=== PATIENT | male | born 1960 | race Caucasian/White ===

== ENCOUNTER 2017-10-16 08:41 | Emergency (ER) | payer SELFPAY ==
[2017-10-16 09:26] LABS: Absolute Lymphocytes (CBC) 1.3 K/uL (0.7-4.9); Absolute Monocytes 0.5 K/uL (0.1-1.3); Absolute Neutrophil 7.1 K/uL (1.8-8.0); Basophils % 0.7 % (0-1.3); Eosinophils % 0.7 % (0-4.4); Hematocrit 46.5 % (39.6-49.0); MCH 31.2 pg (27.0-35.0); MCV 94.7 fL (80-100); MPV 7.8 fL (7.6-11.3); Monocytes % 5.7 % (3.3-12.3)
--- NOTE | 2017-10-16 09:35 | RAD REPORT ---
EXAM DESCRIPTION: RAD - Chest Single View - 10/16/2017 9:22 am CLINICAL HISTORY: Chest pain. COMPARISON: None. FINDINGS: Portable technique limits examination quality. The lungs are grossly clear. The heart is normal in size. No displaced fractures. IMPRESSION: No acute intrathoracic process suspected.
[2017-10-16 09:41] LABS: Protime INR 1.1
[2017-10-16 09:48] LABS: Bicarbonate 25 mEq/L (21-31); Glucose Level 116 mg/dL (65-120); Lipase 39 U/L (22-51); Potassium 3.8 mEq/L (3.6-5.0); Sodium Level 139 mEq/L (135-145)
[2017-10-16 09:54] LABS: ALT/SGPT 51 IU/L (10-60); AST/SGOT 49 IU/L (10-42); Alkaline Phosphatase 75 IU/L (42-121); Amylase Level 85 U/L (28-100); BUN Blood Urea Nitrogen 14 mg/dL (6-20); Bilirubin Direct 0.1 mg/dL (0-0.2); Bilirubin Total 0.7 mg/dL (0.3-1.2); Creatine Phosphokinase 341 IU/L (22-269); Magnesium 1.9 mg/dL (1.8-2.5); Protein, Total 7.5 g/dL (6.0-8.3)
[2017-10-16] MEDS ORDERED: ONDANSETRON 4 MG/2 ML VIAL ONE (10:02)
--- NOTE | 2017-10-16 10:35 | RAD REPORT ---
EXAM DESCRIPTION: CT - Abdomen Pelvis W Contrast - 10/16/2017 10:14 am CLINICAL HISTORY: Abdominal pain/right lower quadrant pain. Nausea COMPARISON: none. TECHNIQUE: Computed axial tomography of the abdomen pelvis was obtained. 100 cc Isovue-300 was admin istered intravenously. Oral contrast was not requested which limits evaluation of bowel. All CT scans are performed using dose optimization technique as appropriate and may include automated exposure control or mA/KV adjustment according to patient size. FINDINGS: The liver has a diminished attenuation consistent with fatty infiltration. The Spleen, pancreas, and adrenals appear unremarkable. Very small renal cysts are present. There is no evidence of diverticulitis. The appendix is normal. A small right inguinal hernia contains fat IMPRESSION: No acute abnormality is displayed.
[2017-10-16 10:41] LABS: CKMB Creatine Kinase MB 10.2 ng/ml (0.3-4.0)
[2017-10-16] MEDS ORDERED: KETOROLAC 30 MG/ML INJ ONE (10:45)
--- NOTE | 2017-10-16 10:52 | ER ---
Nurse's Notes [facility] Name: Jerry Lozada Age: 56 yrs Sex: Male : 1960 Arrival Date: 10/16/2017 Time: 08:41 Bed 8 Private MD: Diagnosis: Generalized abdominal pain Presentation: 10/16 08:57 Presenting complaint: Patient states: RLQ pain that radiates down R leg x 1 month, L ss arm tingling, pain and numbness x 1 week chest pressure and nausea that started this morning. Transition of care: patient was not received from another setting of care. Onset of symptoms is unknown. Initial Sepsis Screen: Does the patient meet any 2 criteria? No. Patient's initial sepsis screen is negative. Does the patient have a suspected source of infection? No. Patient's initial sepsis screen is negative. Care prior to arrival: None. 08:57 Method Of Arrival: Ambulatory ss 08:57 Acuity: KERA 3 ss Historical: - Allergies: 10:27 No Known Allergies; sg - Home Meds: 10:27 None [Active]; sg - PMHx: 10:27 DVT; Myocardial infarction; Hepatomegaly; sg - Immunization history:: Adult Immunizations up to date. - Social history:: Smoking status: Patient uses tobacco products, smokes one pack cigarettes per day. Screenin:00 Abuse screen: Denies threats or abuse. Denies injuries from another. Nutritional sg screening: No deficits noted. Tuberculosis screening: No symptoms or risk factors identified. Never had TB. Fall Risk None identified. Assessment: 09:16 General: Appears in no apparent distress. comfortable, well groomed, well developed, sg well nourished, Behavior is calm, cooperative, appropriate for age. Pain: Complains of pain in abdomen Quality of pain is described as aching, crampy, sharp, stabbing. Neuro: Level of Consciousness is awake, alert, obeys commands, Oriented to person, place, time, Lead Neurodiagnostic Technologist are equal bilaterally Moves all extremities. Full function Gait is steady, Speech is normal, Facial symmetry appears normal. Cardiovascular: Heart tones S1 S2 present Capillary refill is brisk in bilateral fingers Patient's skin is warm and dry. Chest pain is denied. Respiratory: Airway is patent Respiratory effort is even, unlabored, Respiratory pattern is regular, symmetrical, Breath sounds are clear. GI: Abdomen is round non-distended, Bowel sounds present X 4 quads. Abd is soft X 4 quads Abdomen is tender to palpation X 4 quads. : No signs and/or symptoms were reported regarding the genitourinary system. EENT: No signs and/or symptoms were reported regarding the EENT system. Derm: Skin is pink, warm \\T\\ dry. Musculoskeletal: No signs and/or symptoms reported regarding the musculoskeletal system. 10:23 Reassessment: Patient appears in no apparent distress at this time. Patient and/or sg family updated on plan of care and expected duration. Pain level reassessed. Patient is alert, oriented x 3, equal unlabored respirations, skin warm/dry/pink. pt returned from CT scan, requesting pain medication at this time, pt offered nonpharm measures for pain control, pt states not helping. Sam PATIENT LIAISON notified Patient states symptoms have not improved. 11:51 Reassessment: while going over discharge instructions with patient. Pt calmly states, ss "I don't want that. that isn't going to work for me. I'll just buy half an oz of cocaine and that'll help me." Pt refused following up with PCP. Vital Signs: 08:57 BP 146 / 85; Pulse 63; Resp 18; Temp 97.4(O); Pulse Ox 99% on R/A; Weight 122.47 kg; ss Height 5 ft. 4 in. (162.56 cm); Pain 7/10; 08:57 Body Mass Index 46.34 (122.47 kg, 162.56 cm) ED Course: 08:41 Patient arrived in ED. as 08:45 Lise Wright FNP-C is PHCP. kb 08:45 Neftali Rios MD is Attending Physician. kb 08:48 Mohan Ortega, ZARIA is Primary Nurse. sg 08:57 Arm band placed on right wrist. ss 08:58 Triage completed. ss 09:14 Patient has correct armband on for positive identification. Placed in gown. Bed in low sv position. green chain operator on. Pulse ox on. NIBP on. Door closed. Head of bed elevated. 09:15 Initial lab(s) drawn, by me, sent to lab. Inserted saline lock: 20 gauge in right sg antecubital area, using aseptic technique. Blood collected. 09:22 XRAY Chest (1 view) In Process Unspecified. EDMS 10:15 CT Abd/Pelvis - W/Contrast In Process Unspecified. EDMS 10:17 CT completed. Patient tolerated procedure well. Patient moved back from CT. sj 11:51 No provider procedures requiring assistance completed. IV discontinued, intact, ss bleeding controlled, No redness/swelling at site. Pressure dressing applied. Administered Medications: 10:05 Drug: Zofran 4 mg Route: IVP; Site: right antecubital; sg 10:45 Drug: TORadol 30 mg Route: IVP; Site: right antecubital; sg Outcome: 10:51 Discharge ordered by MD. kb 11:51 Discharged to home ambulatory. ss 11:51 Condition: good 11:51 Discharge instructions given to patient, Instructed on discharge instructions, follow up and referral plans. medication usage, Demonstrated understanding of see nurses notes 11:57 Patient left the ED. ss Signatures: Dispatcher [employer] EDMS Lise Wright, VANNA-C TABLET MAKING MACHINE OPERATOR-Clau Sanchez, RN RN Mohan Dunlap, Emilee Bender RN, Amelia as Smirch, Shelby, ZARIA ENCISO
--- NOTE | 2017-10-16 10:52 | EDPHYS ---
Physician Documentation [facility] Name: Jerry Lozada Age: 56 yrs Sex: Male : 1960 Arrival Date: 10/16/2017 Time: 08:41 Bed 8 Private MD: ED Physician Neftali Rios HPI: 10/16 10:38 This 56 yrs old Male presents to ER via Ambulatory with complaints of kb Abdominal Pain, Vomiting. 10:38 The patient presents with abdominal pain in the epigastric area, in the right upper kb quadrant, right lower quadrant. Onset: The symptoms/episode began/occurred 1 month(s) ago, and became worse today. The symptoms radiate to right leg. Associated signs and symptoms: none. The symptoms are described as constant. Modifying factors: The symptoms are alleviated by nothing, the symptoms are aggravated by pressure. Severity of pain: At its worst the pain was moderate in the emergency department the pain is unchanged. The patient has not experienced similar symptoms in the past. Pt reports right-sided abd pain with radiation down right leg that started a month ago. Reports pain is worse today and also has pain to epigastric area. States he was told 2.5 years ago that he had liver disease, but did not get it rechecked. . Historical: - Allergies: 10:27 No Known Allergies; sg - Home Meds: 10:27 None [Active]; sg - PMHx: 10:27 DVT; Myocardial infarction; Hepatomegaly; sg - Immunization history:: Adult Immunizations up to date. - Social history:: Smoking status: Patient uses tobacco products, smokes one pack cigarettes per day. ROS: 10:40 Constitutional: Negative for fever, chills, and weight loss, Cardiovascular: Negative kb for chest pain, palpitations, and edema, Respiratory: Negative for shortness of breath, cough, wheezing, and pleuritic chest pain, Back: Negative for injury and pain, : Negative for injury, bleeding, discharge, and swelling, MS/Extremity: Negative for injury and deformity, Skin: Negative for injury, rash, and discoloration, Neuro: Negative for headache, weakness, numbness, tingling, and seizure. 10:40 Abdomen/GI: Positive for abdominal pain, Negative for nausea, vomiting, and diarrhea, constipation, abdominal cramps, abdominal distension, anorexia. Exam: 10:40 Constitutional: This is a well developed, well nourished patient who is awake, alert, kb and in no acute distress. Head/Face: Normocephalic, atraumatic. Chest/axilla: Normal chest wall appearance and motion. Nontender with no deformity. No lesions are appreciated. Cardiovascular: Regular rate and rhythm with a normal S1 and S2. No gallops, murmurs, or rubs. Normal PMI, no JVD. No pulse deficits. Respiratory: Lungs have equal breath sounds bilaterally, clear to auscultation and percussion. No rales, rhonchi or wheezes noted. No increased work of breathing, no retractions or nasal flaring. Back: No spinal tenderness. No costovertebral tenderness. Full range of motion. Skin: Warm, dry with normal turgor. Normal color with no rashes, no lesions, and no evidence of cellulitis. MS/ Extremity: Pulses equal, no cyanosis. Neurovascular intact. Full, normal range of motion. Neuro: Awake and alert, GCS 15, oriented to person, place, time, and situation. Cranial nerves II-XII grossly intact. Motor strength 5/5 in all extremities. Sensory grossly intact. Cerebellar exam normal. Normal gait. 10:40 Abdomen/GI: Inspection: abdomen appears normal, Bowel sounds: normal, Palpation: soft, in all quadrants, mild abdominal tenderness, in the left upper quadrant and left lower quadrant, moderate abdominal tenderness, in the right upper quadrant and right lower quadrant. Vital Signs: 08:57 BP 146 / 85; Pulse 63; Resp 18; Temp 97.4(O); Pulse Ox 99% on R/A; Weight 122.47 kg; ss Height 5 ft. 4 in. (162.56 cm); Pain 7/10; 08:57 Body Mass Index 46.34 (122.47 kg, 162.56 cm) ss MDM: 08:50 Patient medically screened. 10:40 Data reviewed: vital signs, nurses notes. Data interpreted: Pulse oximetry: on room air kb is 99 %. Interpretation: normal. 10:51 Data reviewed: I have discussed the patient's presentation/case with the attending Emergency Department Physician;. Counseling: I had a detailed discussion with the patient and/or guardian regarding: the historical points, exam findings, and any diagnostic results supporting the discharge/admit diagnosis, lab results, radiology results, the need for outpatient follow up, a family practitioner, a lithograph designer, to return to the emergency department if symptoms worsen or persist or if there are any questions or concerns that arise at home. 10/16 08:57 Order name: Basic Metabolic Panel; Complete Time: 10:42 kb 10/16 08:57 Order name: BNP; Complete Time: 10:07 kb 10/16 08:57 Order name: CBC with Diff; Complete Time: 09:35 kb 10/16 08:57 Order name: Ckmb; Complete Time: 10:42 kb 10/16 08:57 Order name: CPK; Complete Time: 10:42 kb 10/16 08:57 Order name: LFT's; Complete Time: 10:42 kb 10/16 08:57 Order name: Magnesium; Complete Time: 10:42 kb 10/16 08:57 Order name: PT-INR; Complete Time: 09:44 kb 10/16 08:57 Order name: Ptt, Activated; Complete Time: 09:44 kb 10/16 08:57 Order name: Troponin (emerg Dept Use Only); Complete Time: 09:50 kb 10/16 08:57 Order name: XRAY Chest (1 view); Complete Time: 09:36 kb 10/16 08:57 Order name: Amylase, Serum; Complete Time: 10:42 kb 10/16 08:57 Order name: Lipase; Complete Time: 10:42 kb 10/16 09:37 Order name: CT Abd/Pelvis - W/Contrast; Complete Time: 10:37 kb 10/16 08:57 Order name: EKG; Complete Time: 08:58 kb 10/16 08:57 Order name: Cardiac monitoring; Complete Time: 09:14 kb 10/16 08:57 Order name: EKG - Nurse/Tech; Complete Time: 09:14 kb 10/16 08:57 Order name: IV Saline Lock; Complete Time: 09:14 kb 10/16 08:57 Order name: Labs collected and sent; Complete Time: 09:14 kb 10/16 08:57 Order name: O2 Per Protocol; Complete Time: 09:14 kb 10/16 08:57 Order name: O2 Sat Monitoring; Complete Time: 09:14 kb Administered Medications: 10:05 Drug: Zofran 4 mg Route: IVP; Site: right antecubital; sg 10:45 Drug: TORadol 30 mg Route: IVP; Site: right antecubital; sg Disposition: 16:39 Co-signature as Attending Physician, Neftali Rios MD. Disposition: 10/16/17 10:51 Discharged to Home. Impression: Generalized abdominal pain. - Condition is Stable. - Discharge Instructions: Abdominal Pain, Adult. - Prescriptions for Bentyl 20 mg Oral Tablet - take 1 tablet by ORAL route every 6 hours As needed; 20 tablet. Zofran 4 mg Oral Tablet - take 1 tablet by ORAL route every 6 hours As needed; 20 tablet. - Medication Reconciliation Form, Thank You Letter, Antibiotic Education, Prescription Opioid Use, Work release form form. - Follow up: Emergency Department; When: As needed; Reason: Worsening of condition. Follow up: Private Physician; When: 2 - 3 days; Reason: Recheck today's complaints, Continuance of care, Re-evaluation by your physician. Signatures: Dispatcher [employer] Lise Evans, VANNA-Shahriar PRABHAKAR-Mohan Kwan RN RN Alyssa Mendoza RN RN ss Starr, Gregory, MD MD
--- NOTE | 2017-10-16 15:40 | EKG ---
Test Date: 2017-10-16 Test Time: 09:02:34 Identity Management Developer: DWIGHT MEASUREMENT RESULTS: Intervals: Rate: 61 MT: 152 QRSD: 78 QT: 404 QTc: 406 [place]: P: 57 MT: 152 QRS: 8 T: 43 INTERPRETIVE STATEMENTS: Normal sinus rhythm Normal ECG No previous ECG available for comparison Electronically Signed On 10-16-17 15:37:46 CDT by Moisés Shafer
== END 2017-10-16 11:57 | disposition home or self-care (01) ==
LOC: ER 08:41
DX: R10.84 Generalized abdominal pain (principal); I25.2 Old myocardial infarction; F17.210 Nicotine dependence, cigarettes, uncomplicated
CPT/HCPCS: 36415; 71045; 74177; 80048; 80076; 82150; 82550; 82553; 83690; 83735; 83880; 84484; 85025; 85610; 85730; 93005; 96374; 96375; 99285; J2405; Q9967

== ENCOUNTER 2023-05-11 17:07 | Emergency (ER) | payer SELFPAY ==
[2023-05-11 19:39] LABS: Specific Gravity 1.025 (1.005-1.030); Urine Bacteria >50 /HPF (<20); Urine Bilirubin NEGATIVE (Negative); Urine Blood 2+ (Negative); Urine Clarity Extremely Turbid (Clear); Urine Color Yellow (Yellow); Urine Glucose NEGATIVE (Negative); Urine Mucus Slight /HPF (None Seen); Urine Protein TRACE (Negative); Urine Urobilinogen Normal (Normal); Urine pH 6.5 (5.0-7.0)
[2023-05-11] MEDS ORDERED: NA CHLORIDE 0.9% 1,000 ML ONE (20:21)
[2023-05-11 21:16] LABS: Hematocrit 39.3 % (39.6-49.0); Lymphocytes % 10.6 % (15.3-44.8); MCV 93.9 fL (80-100); MPV 8.1 fL (7.6-11.3); Platelets 221 thou/uL (152-406); RBC Red Blood Cell Count 4.19 M/uL (4.33-5.43)
[2023-05-11 21:27] LABS: Albumin 3.2 g/dL (3.4-5.0); Bilirubin Total 0.4 mg/dL (0.2-1.0); Potassium 3.7 mEq/L (3.5-5.1); Protein, Total 7.2 g/dL (6.4-8.2)
--- NOTE | 2023-05-11 22:08 | RAD REPORT ---
EXAM DESCRIPTION: CTAbdomen Pelvis W Contrast - 05/11/2023 9:55 pm CLINICAL HISTORY: Abdominal pain. FLANK PAIN COMPARISON: <Comparisons> TECHNIQUE: Biphasic CT imaging of the abdomen and pelvis was performed with 100 ml non-ionic IV cont rast. All CT scans are performed using dose optimization technique as appropriate and may include automated exposure control or mA/KV adjustment according to patient size. FINDINGS: The lung bases are clear. The liver, spleen, pancreas, adrenal glands and kidneys are within normal limits. No bowel obstruction, free air, free fluid or abscess. Moderate stool is present throughout the colon . The appendix is normal. No evidence of significant lymphadenopathy. Moderate fat containing right inguinal hernia. Bilateral spondylolysis with mild anterolisthesis L5-S1. Hardware is in place proximal left femur. IMPRESSION: No acute intra-abdominal or pelvic finding. Moderate lumbosacral spondylosis.
[2023-05-11] MEDS ORDERED: Levofloxacin500mg IV 500 MG/100 ML BAG IV ONE (23:19)
--- NOTE | 2023-05-11 23:52 | EDPHYS ---
Physician Documentation [facility] Name: Jerry Lozada Age: 62 yrs Sex: Male : 1960 Arrival Date: 05/11/2023 Time: 17:07 Bed 9 Private MD: ED Physician Pedro Bass HPI: 05/12 00:10 This 62 yrs old Male presents to ER via Ambulatory with complaints of flank pain, UTI sb4 symptoms. 02:30 The patient complains of pain in the right low back. The pain does not radiate. patient sb4 states that he has been battling a UTI. he was diagnosed with one a week or so ago and treated with only IV antibiotics because he states that he could not afford to fill the PO antibiotics. he states he has been experiencing continuing UTI symptoms and now his right lower back hurts. denies any fevers, chills, nausea, vomiting, diarrhea. Historical: - Allergies: 05/11 17:50 PENICILLINS; ap3 17:50 Codeine; ap3 - PMHx: 17:50 DVT; hepatomegaly; Myocardial infarction; ap3 - Immunization history:: Client reports having NOT received the Covid vaccine. - Social history:: Smoking status: Patient reports the use of cigarette tobacco products, smokes one pack cigarettes per day. ROS: 05/12 02:30 Constitutional: Negative for fever, chills, and weight loss, sb4 Back: Positive for flank pain, on the right, : Positive for urinary symptoms, burning with urination, All other systems are negative, Exam: 02:30 Constitutional: This is a well developed, well nourished patient who is awake, alert, sb4 and in no acute distress. Head/Face: Normocephalic, atraumatic. Eyes: Extra-ocular motions intact. Periorbital areas with no swelling, redness, or edema. ENT: Mucous membranes moist. Cardiovascular: Regular rate and rhythm with a normal S1 and S2. Respiratory: Lungs have equal breath sounds bilaterally, clear to auscultation and percussion. No rales, rhonchi or wheezes noted. No increased work of breathing, no retractions or nasal flaring. Abdomen/GI: Soft, non-tender, no distension. Skin: Warm, dry with normal turgor. Normal color with no rashes, no lesions, and no evidence of cellulitis. MS/ Extremity: Pulses equal, no cyanosis. Neurovascular intact. Full, normal range of motion. 02:30 Back: CVA tenderness, that is mild, is noted on the right, sb4 Vital Signs: 05/11 17:47 BP 147 / 77; Pulse 86; Resp 18; Temp 99.1; Pulse Ox 98% on R/A; ap3 17:53 Weight 86.18 kg; Pain 9/10; ap3 20:12 BP 107 / 69; Pulse 75; Resp 18; Pulse Ox 97% on R/A; me1 23:25 BP 115 / 62; Pulse 80; Resp 18; Pulse Ox 97% on R/A; me1 05/12 00:44 BP 104 / 61; Pulse 77; Resp 18 S; Pulse Ox 98% on R/A; as6 17:53 Pain Scale: Adult ap3 MDM: 05/11 17:52 Patient medically screened. sb4 05/12 02:30 Differential diagnosis: nephrolithiasis, pyelonephritis, UTI. Data reviewed: vital sb4 signs, nurses notes, lab test result(s), radiologic studies, and as a result, I will discharge patient. Care significantly affected by the following chronic conditions: Obesity. Care significantly affected by the following Social Determinants of Health: Poor access to healthcare and/or lack of insurance. Counseling: I had a detailed discussion with the patient and/or guardian regarding the historical points, exam findings, and any diagnostic results supporting the discharge/admit diagnosis, lab results, radiology results, to return to the emergency department if symptoms worsen or persist or if there are any questions or concerns that arise at home. 05/11 17:55 Order name: CBC with Diff; Complete Time: 21:24 sb4 05/11 17:55 Order name: CMP; Complete Time: 21:31 sb4 05/11 17:55 Order name: Lipase; Complete Time: 21:31 sb4 05/11 17:55 Order name: Urinalysis w/ reflexes; Complete Time: 19:41 sb4 05/11 17:55 Order name: Lactate w/ 2H reflex if indic.; Complete Time: 20:30 sb4 05/11 19:43 Order name: Urine Culture EDMS 05/11 21:32 Order name: CT Abd/Pelvis - IV Contrast Only; Complete Time: 22:10 sb4 05/11 17:55 Order name: IV Saline Lock; Complete Time: 20:02 sb4 05/11 17:55 Order name: Labs collected and sent; Complete Time: 20:02 sb4 05/11 20:19 Order name: Misc. Order: recollect green and purple top; Complete Time: 20:38 as6 Administered Medications: 05/11 20:08 Drug: NS 0.9% IV 1000 ml IV at 1 bolus Per protocol; 1000 mL bolus Route: IV; Rate: 1 me1 bolus; Site: left antecubital; 21:52 Follow up: IV Status: Completed infusion me1 23:19 Drug: levofloxacin IVPB 500 mg 100 ml IVPB once over 60 mins Volume: 100 ml; Route: me1 IVPB; Infused Over: 60 mins; Site: right antecubital; 05/12 01:28 Follow up: Response: No adverse reaction; IV Status: Completed infusion; IV Intake: as6 100ml Disposition Summary: 05/11/23 23:51 Discharge Ordered Notes: Location: Home sb4 Problem: new sb4 Symptoms: have improved sb4 Condition: Stable sb4 Diagnosis - UTI/ Urinary tract infection, site not specified sb4 Followup: sb4 - With: Emergency Department - When: As needed - Reason: Trouble breathing, Worsening of condition Discharge Instructions: - Discharge Summary Sheet sb4 - Urinary Tract Infection, Adult, [id number] sb4 Forms: - Medication Reconciliation Form sb4 - Thank You Letter sb4 - Antibiotic Education sb4 - Prescription Opioid Use sb4 - Patient Portal Instructions sb4 - Leadership Thank You Letter sb4 Prescriptions: - levofloxacin 500 mg Oral tablet - take 1 tablet ORAL route once daily for 7 days; 7 tablet; Refills: 0, Product sb4 Selection Permitted Signatures: Dispatcher [employer] Faby Batista RN RN ap3 Bassam Clark RN RN as6 Lindsay Chavez PAIsh PAIsh sb4 Mallory Perla RN RN me1 Corrections: (The following items were deleted from the chart) 00:11 00:10 This 62 yrs old Male presents to ER via Ambulatory with complaints of Back Pain. sb4 sb4
--- NOTE | 2023-05-11 23:52 | ER ---
Nurse's Notes [facility] Name: Jerry Lozada Age: 62 yrs Sex: Male : 1960 Arrival Date: 05/11/2023 Time: 17:07 Bed 9 Private MD: Diagnosis: UTI/ Urinary tract infection, site not specified Presentation: 05/11 17:47 Chief complaint: Patient states: he has a history of kidney infections, and is having ap3 right sided low back pain. patient also reports "my urine is dark and i haven't had much water". Coronavirus screen: At this time, the client does not indicate any symptoms associated with coronavirus-19. Ebola Screen: No symptoms or risks identified at this time. Initial Sepsis Screen: Does the patient meet any 2 criteria? Yes Does the patient have a suspected source of infection? Yes: Dysuria/Frequency/Urgency/UTI. Risk Assessment: Do you want to hurt yourself or someone else? Patient reports no desire to harm self or others. Onset of symptoms is unknown. 17:47 Method Of Arrival: Ambulatory ap3 17:47 Acuity: KERA 3 ap3 Triage Assessment: 17:53 General: Appears in no apparent distress. Behavior is cooperative. Pain: Complains of ap3 pain in right low back Pain currently is 9 out of 10 on a pain scale. Pain began gradually. Neuro: Level of Consciousness is awake, alert, obeys commands, Oriented to person, place, time, situation, Appropriate for age. Cardiovascular: Patient's skin is warm and dry. Respiratory: Airway is patent Respiratory effort is even, unlabored, Respiratory pattern is regular, symmetrical. : Reports burning with urination, urgency, urinary frequency. Historical: - Allergies: 17:50 PENICILLINS; ap3 17:50 Codeine; ap3 - PMHx: 17:50 DVT; hepatomegaly; Myocardial infarction; ap3 - Immunization history:: Client reports having NOT received the Covid vaccine. - Social history:: Smoking status: Patient reports the use of cigarette tobacco products, smokes one pack cigarettes per day. Screenin:54 [facility] ED Fall Risk Assessment (Adult) History of falling in the last 3 months, ap3 including since admission No falls in past 3 months (0 pts). Abuse screen: Denies threats or abuse. Nutritional screening: No deficits noted. Tuberculosis screening: No symptoms or risk factors identified. Assessment: 20:03 General: Appears uncomfortable, well groomed, well developed, well nourished, Behavior me1 is calm, cooperative, appropriate for age, Reports chills for >3 days, fever for feeling ill for he has a history of kidney infections, and is having right sided low back pain. patient also reports "my urine is dark and i haven't had much water". Pain: Complains of pain in back and right low back Pain does not radiate. Pain currently is 7 out of 10 on a pain scale. Quality of pain is described as aching, Pain began gradually, 3 months Is continuous. Neuro: Level of Consciousness is awake, alert, obeys commands, Oriented to person, place, time, situation, Appropriate for age. Cardiovascular: Capillary refill < 3 seconds Patient's skin is warm and dry. Respiratory: Airway is patent Respiratory effort is even, unlabored, Respiratory pattern is regular, symmetrical. : Reports burning with urination. Vital Signs: 17:47 BP 147 / 77; Pulse 86; Resp 18; Temp 99.1; Pulse Ox 98% on R/A; ap3 17:53 Weight 86.18 kg; Pain 9/10; ap3 20:12 BP 107 / 69; Pulse 75; Resp 18; Pulse Ox 97% on R/A; me1 23:25 BP 115 / 62; Pulse 80; Resp 18; Pulse Ox 97% on R/A; me1 05/12 00:44 BP 104 / 61; Pulse 77; Resp 18 S; Pulse Ox 98% on R/A; as6 17:53 Pain Scale: Adult ap3 ED Course: 05/11 17:10 Patient arrived in ED. mr 17:25 Lindsay Chavez PA-C is PHCP. sb4 17:25 Pedro Bass MD is Attending Physician. sb4 17:50 Triage completed. ap3 17:54 Arm band placed on right wrist. ap3 19:37 Mallory Perla, ZARIA is Primary Nurse. me1 19:53 Lactate w/ 2H reflex if indic. Sent. me1 19:53 CBC with Diff Sent. me1 19:53 CMP Sent. me1 19:53 Lipase Sent. me1 20:02 Inserted saline lock: 22 gauge in right antecubital area, using aseptic technique. me1 20:06 Patient has correct armband on for positive identification. Bed in low position. Call me1 light in reach. Side rails up X2. Provided Education on: POC. Verbalized understanding. . 20:06 No provider procedures requiring assistance completed. me1 21:57 CT Abd/Pelvis - IV Contrast Only In Process Unspecified. EDMS 05/12 00:45 IV discontinued, intact, bleeding controlled, No redness/swelling at site. Pressure as6 dressing applied. Administered Medications: 05/11 20:08 Drug: NS 0.9% IV 1000 ml IV at 1 bolus Per protocol; 1000 mL bolus Route: IV; Rate: 1 me1 bolus; Site: left antecubital; 21:52 Follow up: IV Status: Completed infusion me1 23:19 Drug: levofloxacin IVPB 500 mg 100 ml IVPB once over 60 mins Volume: 100 ml; Route: me1 IVPB; Infused Over: 60 mins; Site: right antecubital; 05/12 01:28 Follow up: Response: No adverse reaction; IV Status: Completed infusion; IV Intake: as6 100ml Medication: 05/11 20:07 VIS not applicable for this client. me1 Intake: 05/12 01:28 IV: 100ml; Total: 100ml. as6 Outcome: 05/11 23:51 Discharge ordered by MD. rodríguez 05/12 00:45 Discharged to home ambulatory, as6 Condition: stable Discharge instructions given to patient, Instructed on discharge instructions, follow up and referral plans. medication usage, Demonstrated understanding of instructions, follow-up care, medications, Prescriptions given X 1, 00:45 Patient left the ED. as6 Signatures: Dispatcher [employer] EDNJ ManuelLuna, Reg Reg mr Faby Berger, RN RN ap3 Bassam Clark RN RN as6 Lindsay Chavez PAPippaC PA-C sb4 Mallory Perla, RN RN me1 Corrections: (The following items were deleted from the chart) 05/11 20:03 17:47 Chief complaint: Patient states: he has a history of kidney infections, and is me1 having right sided low back pain. patient also reports "my urine is dark and i haven't had much water" ap3
[2023-05-12 00:56] VITALS: TEMP 99.1
[2023-05-12 01:17] VITALS: BP 104/61; O2SAT 98
== END 2023-05-12 00:45 | disposition home or self-care (01) ==
LOC: ER 17:07
DX: N39.0 Urinary tract infection, site not specified (principal)
CPT/HCPCS: 36415; 74177; 80053; 81001; 83605; 83690; 85025; 87077; 87086; 87088; 87186; 96361; 96365; 96366; 99284; J7030; Q9967